=== PATIENT | male | born 1960 | race Two or more races ===

== ENCOUNTER 2017-04-09 07:06 | Emergency (ER) | payer BC ==
[2017-04-09 07:24] VITALS: TEMP 98; BMI 25.0
--- NOTE | 2017-04-09 07:47 | PDOC ---
History of Present Illness - General History Source: Patient, Friend Exam Limitations: No Limitations - History of Present Illness Initial Comments: 04/09/17 07:51 The patient is a 56 year old male presenting with a friend, with a significant past medical history of GERD, who presents to the emergency department with chest pain and back pain for the past 5 days. He reports that he lifted a heavy object 5 days ago prompting the onset of his back pain. He describes his back pain as ranging from mild to moderate, without radiation or modifying factors. He states that he started to get chest pain today, which ranges from mild to moderate, without radiation or modifying factors. He reports that he does get chest pain regularly. The patient denies shortness of breath, headache and dizziness. Denies fever, chills, nausea, vomit, diarrhea and constipation. Allergies: None reported Past surgical history: Abdominal hernia Social history: Former smoker. No alcohol or drug use reported PMD - Dr. Melchor Tamayo <Ivan Bolden - Last Filed: 04/09/17 08:24> <Katalina Oneal - Last Filed: 04/09/17 16:47> - General Chief Complaint: Back Pain Stated Complaint: CHEST PAIN Time Seen by Provider: 04/09/17 07:22 Past History <Ivan Bolden - Last Filed: 04/09/17 08:24> - Past Medical History GI Disorders: Yes (gerd) - Surgical History Abdominal Surgery: Yes (hernia) - Psycho/Social/Smoking Cessation Hx Anxiety: No Suicidal Ideation: No Smoking History: Former smoker Have you smoked in the past 12 months: No Information on smoking cessation initiated: No Hx Alcohol Use: No Drug/Substance Use Hx: No Substance Use Type: None <Katalina Oneal - Last Filed: 04/09/17 16:47> - Past Medical History Allergies/Adverse Reactions: Allergies Allergy/AdvReac Type Severity Reaction Status Date / Time No Allergy Information Allergy Verified 04/09/17 07:27 Available Home Medications: Ambulatory Orders Famotidine [Pepcid] 20 mg PO DAILY 04/09/17 Methocarbamol [Robaxin -] 500 mg PO BID PRN #14 tablet 04/09/17 Pantoprazole Sodium [Protonix] 40 mg PO DAILY 04/09/17 Review of Systems - Review of Systems Able to Perform ROS?: Yes Comments:: 04/09/17 07:51 GENERAL/CONSTITUTIONAL: No fever or chills. No weakness. HEAD, EYES, EARS, NOSE AND THROAT: No change in vision. No ear pain or discharge. No sore throat. CARDIOVASCULAR: (+) Chest pain. No shortness of breath RESPIRATORY: No cough, wheezing, or hemoptysis. GASTROINTESTINAL: No nausea, vomiting, diarrhea or constipation. GENITOURINARY: No dysuria, frequency, or change in urination. MUSCULOSKELETAL: (+) Back pain. No joint or muscle swelling or pain. No neck pain. SKIN: No rash NEUROLOGIC: No headache, vertigo, loss of consciousness, or change in strength/ sensation. ENDOCRINE: No increased thirst. No abnormal weight change HEMATOLOGIC/LYMPHATIC: No anemia, easy bleeding, or history of blood clots. ALLERGIC/IMMUNOLOGIC: No hives or skin allergy. <Ivan Bolden - Last Filed: 04/09/17 08:24> *Physical Exam - Vital Signs Last Vital Signs Temp Pulse Resp BP Pulse Ox 98.0 F 70 18 136/72 100 04/09/17 07:15 04/09/17 07:15 04/09/17 07:15 04/09/17 07:15 04/09/17 07:15 - Physical Exam Comments: 04/09/17 07:52 GENERAL: Awake, alert, and fully oriented, in no acute distress HEAD: No signs of trauma, normocephalic, atraumatic EYES: PERRLA, EOMI, sclera anicteric, con junctiva clear ENT: Auricles normal inspection, hearing grossly normal, nares patent, oropharynx clear without exudates. Moist mucosa NECK: Normal ROM, supple, no lymphadenopathy, JVD, or masses LUNGS: No distress, speaks full sentences, clear to auscultation bilaterally HEART: Regular rate and rhythm, normal S1 and S2, no murmurs, rubs or gallops, peripheral pulses normal and equal bilaterally. ABDOMEN: Soft, nontender, normoactive bowel sounds. No guarding, no rebound. No masses EXTREMITIES: Normal inspection, Normal range of motion, no edema. No clubbing or cyanosis. NEUROLOGICAL: Cranial nerves II through XII grossly intact. Normal speech, normal gait, no focal sensorimotor deficits SKIN: Warm, Dry, normal turgor, no rashes or lesions noted. <Ivan Bolden - Last Filed: 04/09/17 08:24> - Vital Signs Last Vital Signs Temp Pulse Resp BP Pulse Ox 98.0 F 70 18 136/72 100 04/09/17 07:15 04/09/17 07:15 04/09/17 07:15 04/09/17 07:15 04/09/17 07:15 <Katalina Oneal - Last Filed: 04/09/17 16:47> Heart Score/ECG Review - ECG Impressions Comment:: EKG read 07:26- NSR 68 bpm, no acute ST/T changes <Katalina Oneal - Last Filed: 04/09/17 16:47> ED Treatment Course - LABORATORY CBC & Chemistry Diagram: 04/09/17 07:50 04/09/17 07:50 - RADIOLOGY Radiograph Interpretation: 04/09/17 08:25 Chest X-Ray Reviewed by: Dr. Leo Beth Impression: No evidence of active pulmonary disease <Ivan Bolden - Last Filed: 04/09/17 08:24> - LABORATORY CBC & Chemistry Diagram: 04/09/17 07:50 04/09/17 07:50 <Katalina Oneal - Last Filed: 04/09/17 16:47> Medical Decision Making - Medical Decision Making 04/09/17 14:13 Pt states he no longer has chest pain, but still c/o pain to the lower back. Difficult to find a comfortable position. No weakness or numbness in his legs. With midline tenderness L3-5 and +muscle spasm. Will obtain XR and reassess. 04/09/17 16:14 Pt reports improvement in pain s/p robaxin. Able to stand and bend without difficulty. No signs of sciatica. XR no acute findings. Stable for DC home. <Katalina Oneal - Last Filed: 04/09/17 16:47> *DC/Admit/Observation/Transfer - Attestations Scribe Attestion: 04/09/17 07:52 Documentation prepared by Ivan Bolden, acting as medical certification specialist for Katalina Oneal MD <Ivan Bolden - Last Filed: 04/09/17 08:24> - Discharge Dispostion Admit: No <OnealDebbiKatalina - Last Filed: 04/09/17 16:47> Diagnosis at time of Disposition: Low back pain Qualifiers: Chronicity: acute Back pain laterality: midline Sciatica presence: without sciatica Qualified Code(s): M54.5 - Low back pain - Discharge Dispostion Disposition: HOME Condition at time of disposition: Stable - Prescriptions Prescriptions: Methocarbamol [Robaxin -] 500 mg PO BID PRN #14 tablet PRN Reason: Muscle Spasms - Patient Instructions Printed Discharge Instructions: DI for Low Back Pain Print Language: AIDAN LARIOS
[2017-04-09 08:06] LABS: MCH 28.5 pg (25.7-33.7); MCHC 32.4 g/dl (32.0-35.9); MEAN PLT VOLUME 9.1 fl (7.5-11.1); NEUTROPHILS 44.5 % (42.8-82.8); PLATELET COUNT 198 K/MM3 (134-434); RDW 14.4 % (11.9-15.9); WHITE BLOOD COUNT 5.9 K/mm3 (4.0-10.0)
[2017-04-09 08:34] LABS: ALBUMIN 3.6 g/dl (3.4-5.0); ANION GAP 8 (8-16); BILIRUBIN,TOTAL 0.4 mg/dL (0.2-1.0); CALCIUM 8.9 mg/dL (8.5-10.1); CO2 28 mmol/L (21-32); CREATININE 1.1 mg/dL (0.7-1.3); GLUCOSE,RANDOM 89 mg/dL (74-106); SGPT/ALT 54 U/L (12-78); TOT PROT 7.1 g/dl (6.4-8.2)
[2017-04-09 08:37] LABS: ALK PHOS 53 U/L (45-117); TROPONIN I < 0.02 ng/ml (0.00-0.05)
[2017-04-09 08:57] LABS: SGOT/AST 33 U/L (15-37)
[2017-04-09] MEDS ORDERED: KETOROLAC TROMETHAMINE 30 MG/1 ML VIAL IVPUSH ONE (09:28)
[2017-04-09] MEDS ORDERED: KETOROLAC TROMETHAMINE 30 MG/1 ML VIAL ONE (09:38)
[2017-04-09] MEDS ORDERED: PANTOPRAZOLE SODIUM 40 MG in SODIUM CHLORIDE 100 ML IVPB ONE (11:01)
[2017-04-09] MEDS ORDERED: PANTOPRAZOLE SODIUM 100 ML IVPB ONE (11:05)
--- NOTE | 2017-04-09 11:36 | EKG ---
Test Reason : Blood Pressure : / mmHG Vent. Rate : 068 BPM Atrial Rate : 068 BPM P-R Int : 152 ms QRS Dur : 086 ms QT Int : 368 ms P-R-T Axes : 059 060 001 degrees QTc Int : 391 ms NORMAL SINUS RHYTHM NORMAL ECG NO PREVIOUS ECGS AVAILABLE Confirmed by JUAN VAN MD ([id number]) on 04/09/2017 11:35:56 AM Referred By: Confirmed By:JUAN VAN MD
[2017-04-09 12:18] LABS: TROPONIN I < 0.02 ng/ml (0.00-0.05)
[2017-04-09] MEDS ORDERED: METHOCARBAMOL 500 MG TABLET PO ONE (14:10)
[2017-04-09] MEDS ORDERED: METHOCARBAMOL 500 MG TABLET ONE (14:41)
[2017-04-09 17:20] VITALS: BP 139/87; PULSE 68
--- NOTE | 2017-04-22 13:59 | EKG ---
Test Reason : Blood Pressure : / mmHG Vent. Rate : 075 BPM Atrial Rate : 075 BPM P-R Int : 156 ms QRS Dur : 082 ms QT Int : 374 ms P-R-T Axes : 055 060 002 degrees QTc Int : 417 ms NORMAL SINUS RHYTHM NONSPECIFIC T WAVE ABNORMALITY ABNORMAL ECG WHEN COMPARED WITH ECG OF 09-APR-2017 07:22, T WAVE VARIATION Confirmed by JUAN VAN MD ([id number]) on 04/22/2017 1:59:30 PM Referred By: Confirmed By:JUAN VAN MD
== END 2017-04-09 17:20 | disposition home or self-care (01) ==
LOC: JER 07:06
PROC: 3E0333Z Introduction of Anti-inflammatory into Peripheral Vein, Percutaneous Approach (ICD-10-PCS; principal; 2017-04-09)
PROC: 3E033GC Introduction of Other Therapeutic Substance into Peripheral Vein, Percutaneous Approach (ICD-10-PCS; 2017-04-09)
DX: M54.5 Low back pain (principal)
CPT/HCPCS: 36415; 71010-TC; 72100-TC; 80053; 82550; 82553; 83690; 84484; 85025; 93005; 93010; 99283-25

== ENCOUNTER 2018-12-05 16:10 | Emergency (ER) | payer BC, OTHER ==
--- NOTE | 2018-12-05 16:21 | PDOC ---
Rapid Medical Evaluation Time Seen by Provider: 12/05/18 16:16 Medical Evaluation: Allergies Allergy/AdvReac Type Severity Reaction Status Date / Time No Allergy Information Allergy Verified 04/09/17 07:27 Available 12/05/18 16:17 I have performed a brief in-person evaluation of this patient. The patient presents with a chief complaint of: Mid lower back pain x 4 days that started after heavy lifting at work. H/o chronic lower back pain (no prior back injuries, surgery or imaging in past), hernia repair remotely Pertinent physical exam findings:kristen mildly uncomfortable I have ordered the following:nothing The patient will proceed to the ED for further evaluation. Discharge Disposition - Diagnosis Back pain Qualifiers: Back pain location: low back pain Chronicity: acute Back pain laterality: unspecified Sciatica presence: without sciatica Qualified Code(s): M54.5 - Low back pain - Referrals - Patient Instructions - Post Discharge Activity
[2018-12-05 16:34] VITALS: BP 147/84; PULSE 88; TEMP 97.5; BMI 24.7
[2018-12-05] MEDS ORDERED: KETOROLAC TROMETHAMINE 30 MG/1 ML VIAL IM ONE (17:49)
--- NOTE | 2018-12-05 17:49 | PDOC ---
History of Present Illness - General Chief Complaint: Back Pain Stated Complaint: Back Pain Time Seen by Provider: 12/05/18 16:16 History Source: Patient, Care Provider (Shayan) Exam Limitations: No Limitations - History of Present Illness Initial Comments: 12/05/18 17:47 CHIEF COMPLAINT: [Lower back pain] HISTORY OF PRESENT ILLNESS: This 58-year-old male past medical history of hernia repair presents emergency department for evaluation of lower back pain for 3 days which occurred while at work. Patient reports he was lifting something when he felt a sudden sharp pain to his middle back with the pain radiating down the posterior both legs. He denies any numbness or tingling, saddle anesthesia, incontinence of bladder or bowel, urinary retention, foot drop, history of IV drug use or history of cancer. REVIEW OF SYSTEMS: GENERAL: Afebrile, denies any weakness RESPIRATORY: No cough, wheezing, or hemoptysis. CARDIAC: No chest pain or shortness of breath MUSCULOSKELETAL: Pain to generalized lower back. No point tenderness. SKIN : No erythema, no bruising, no deformity. GI/: Denies any abdominal pain, no urinary difficulty, incontinence or urinary retention. RECTAL: Denies any difficulty this A.m. NEUROLOGICAL: Denies any numbness or tingling. No neurosensory deficits. PHYSICAL EXAM: GENERAL: The patient is awake, alert, and fully oriented, in no acute distress. RESPIRATORY: Lungs clear bilaterally, no rhonchi wheezes or crackles CARDIAC: S1-S2 audible, no murmur rub or gallop MUSCULOSKELETAL: Pain to generalized lower back, nonradiating, no tingling or sensory deficit. Less than 2 second cap refill, +2 pedal pulses. No spinal point tenderness. Normal reflexive and no deficits to sensation or strength. GI/: Abdomen soft, nontender, nondistended. No rebound tenderness. No masses palpable. RECTAL: Deferred patient with no neurological findings SKIN: Warm, Dry, normal turgor, no erythema, no edema no bruising. Past History - Past Medical History Allergies/Adverse Reactions: Allergies Allergy/AdvReac Type Severity Reaction Status Date / Time No Allergy Information Allergy Verified 12/05/18 16:31 Available Home Medications: Ambulatory Orders NK [No Known Home Medication] 12/05/18 COPD: No GI Disorders: Yes (gerd) - Surgical History Abdominal Surgery: Yes (hernia) - Suicide/Smoking/Psychosocial Hx Smoking History: Never smoked Have you smoked in the past 12 months: No Information on smoking cessation initiated: No Hx Alcohol Use: No Drug/Substance Use Hx: No Substance Use Type: None *Physical Exam - Vital Signs Last Vital Signs Temp Pulse Resp BP Pulse Ox 97.5 F L 88 18 147/84 100 12/05/18 16:32 12/05/18 16:32 12/05/18 16:32 12/05/18 16:32 12/05/18 16:32 Moderate Sedation - Procedure Monitoring Vital Signs: Procedure Monitoring Vital Signs Temperature 97.5 F L 12/05/18 16:32 Pulse Rate 88 12/05/18 16:32 Respiratory Rate 18 12/05/18 16:32 Blood Pressure 147/84 12/05/18 16:32 O2 Sat by Pulse Oximetry (%) 100 12/05/18 16:32 Medical Decision Making - Medical Decision Making 12/05/18 17:48 A/P: 58-year-old male with lower back pain status post heavy lifting Patient states he has many ALLERGIES which includes "all pills." Dr. Downey's office was contacted Dr. Downey states the patient has received nonsteroidal anti -inflammatory drugs in the past without any reaction. Toradol 30 mg IM now Reassess *DC/Admit/Observation/Transfer Diagnosis at time of Disposition: Back pain Qualifiers: Back pain location: low back pain Chronicity: acute Back pain laterality: midline Sciatica presence: with sciatica Sciatica laterality: bilateral sciatica Qualified Code(s): M54.42 - Lumbago with sciatica, left side; M54.41 - Lumbago with sciatica, right side - Discharge Dispostion Disposition: HOME Condition at time of disposition: Stable Decision to Admit order: No - Referrals Referrals: Mikey Downey MD [Primary Care Provider] - - Patient Instructions Additional Instructions: Rest. Take naproxen as needed for pain. Follow manufacturers instructions for appropriate dosage. Warm moist heat applied to your back may help alleviate pain. Return to emergency department for discoloration of the feet, numbness or tingling to the feet, worsening pain, or any other concerns. Thank you very much for choosing us to provide your emergent healthcare needs. - Post Discharge Activity
[2018-12-05] MEDS ORDERED: KETOROLAC TROMETHAMINE 30 MG/1 ML VIAL ONE (17:55)
== END 2018-12-05 18:28 | disposition home or self-care (01) ==
LOC: JERFT 16:10 → JER 16:10 → JERFT 18:28
PROC: 3E0233Z Introduction of Anti-inflammatory into Muscle, Percutaneous Approach (ICD-10-PCS; principal; 2018-12-05)
DX: M54.5 Low back pain (principal); X50.0XXA Overexertion from strenuous movement or load, initial encounter; Y93.89 Activity, other specified; Y92.69 Other specified industrial and construction area as the place of occurrence of the external cause; Y99.0 Civilian activity done for income or pay
CPT/HCPCS: 99281-25